=== PATIENT | female | born 1975 ===

== ENCOUNTER 2017-12-12 04:40 | Emergency (ER) | payer SELFPAY ==
[2017-12-12 04:40] VITALS: BMI 31.2
[2017-12-12] MEDS ORDERED: DiphenhydrAMINE 50 mg/ml Inj ONE (04:56)
[2017-12-12 05:04] VITALS: O2SAT 99
--- NOTE | 2017-12-12 05:04 | C.PDOC ---
History Of Present Illness Patient presents to the ER after she woke up with a diffuse urticarial rash. Patient took benadryl at home, however, states she still feels itchy. Patient is currently speaking in complete sentences; denies fever, chills, nausea, or vomiting. Time Seen by Provider: 12/12/17 05:04 Chief Complaint (Nursing): Allergic Reaction History Per: Patient History/Exam Limitations: no limitations Onset/Duration Of Symptoms: Hrs Current Symptoms Are (Timing): Still Present Possible Cause: Unknown Associated Symptoms: Skin Rash, Itching Home/EMS Treatment: Benadryl Severity: Moderate Pain Scale Rating Of: 4 Recent travel outside of the [place]: No Additional History Per: Family Past Medical History Reviewed: Historical Data, Nursing Documentation, Vital Signs Vital Signs: Last Vital Signs Temp 97.9 F 12/12/17 04:57 Pulse 93 H 12/12/17 04:57 Resp 20 12/12/17 04:57 BP 137/77 12/12/17 04:57 Pulse Ox 99 12/12/17 05:14 - Medical History PMH: Hypercholesterolemia, Kidney Stones Family History: States: Diabetes - Social History Hx Tobacco Use: No Hx Alcohol Use: No Hx Substance Use: No - Immunization History Hx Tetanus Toxoid Vaccination: No Hx Influenza Vaccination: Yes Hx Pneumococcal Vaccination: No Review Of Systems Constitutional: Negative for: Fever, Chills Respiratory: Negative for: Shortness of Breath, Wheezing Gastrointestinal: Negative for: Nausea, Vomiting Skin: Positive for: Rash Neurological: Negative for: Weakness Psych: Negative for: Anxiety Physical Exam - Physical Exam Appears: In Acute Distress Skin: Warm (Diffuse urticaria), Dry, Rash (Diffuse uriticaria) Head: Normacephalic Eye(s): bilateral: Normal Inspection Oral Mucosa: Moist Tongue: No Swelling Lips: No Swelling Throat: No Drooling Neck: Trachea Midline, Supple Chest: Symmetrical, No Tenderness Cardiovascular: Rhythm Regular Respiratory: No Rales, No Rhonchi, No Stridor, No Wheezing Gastrointestinal/Abdominal: Soft, No Tenderness Back: Normal Inspection Extremity: Normal ROM Extremity: Bilateral: Atraumatic Neurological/Psych: Oriented x3 Gait: Steady ED Course And Treatment O2 Sat by Pulse Oximetry: 99 (Room air) Pulse Ox Interpretation: Normal Progress Note: Benadryl and pepcid solumedrol administered. 6:15 MA Rash resolved. Pt wants to go home Reevaluation Time: 06:15 Reassessment Condition: Improved Critical Care Time - Critical Care Note Total Time (in mins): 30 Documented critical care: time excludes all time spent performing seperately billable procedures. Disposition Counseled Patient/Family Regarding: Studies Performed, Diagnosis, Need For Followup, Rx Given - Disposition Referrals: [facility] [Outside] [facility] [Outside] Disposition: HOME/ ROUTINE Disposition Time: 05:04 Condition: FAIR Additional Instructions: Please return if symptoms recur. Also use benadryl, pepcid and claritin Prescriptions: Epinephrine [Epipen] 0.3 mg IJ ONCE PRN #2 auto.injct PRN Reason: Anaphylaxis predniSONE [predniSONE Tab] 20 mg PO DAILY #5 tab Instructions: Hives Forms: [facility] (Yoruba) - Clinical Impression Clinical Impression: Allergic reaction - Scribe Statement The provider has reviewed the documentation as recorded by the Scribe Zbigniew Soriano All medical record entries made by the Scribe were at my direction and personally dictated by me. I have reviewed the chart and agree that the record accurately reflects my personal performance of the history, physical exam, medical decision making, and the department course for this patient. I have also personally directed, reviewed, and agree with the discharge instructions and disposition.
[2017-12-12] MEDS ORDERED: DiphenhydrAMINE 50 mg/ml Inj IVP STA (05:13)
[2017-12-12 06:24] VITALS: BP 129/80; PULSE 88; RESP 18; TEMP 98
== END 2017-12-12 06:24 | disposition home or self-care (01) ==
LOC: C.ER 04:40
DX: T78.40XA Allergy, unspecified, initial encounter (principal); X58.XXXA Exposure to other specified factors, initial encounter; E78.00 Pure hypercholesterolemia, unspecified
CPT/HCPCS: 96374; 96375; 99284; J1200; J2930